=== PATIENT | female | born 1990 | race Two or more races ===

== ENCOUNTER 2022-06-25 03:28 | Emergency (ER) | payer OTHER ==
[~2022-06-25] VITALS: Ht 165.1 cm; Wt 59.0 kg
== END 2022-06-25 12:23 | disposition home or self-care (01) ==
LOC: ER 03:28
DX: F10.929 Alcohol use, unspecified with intoxication, unspecified (principal); R56.9 Unspecified convulsions; Z20.822 Contact with and (suspected) exposure to COVID-19